=== PATIENT | male | born 2005 | race Hispanic/Latino ===

== ENCOUNTER 2024-12-15 11:22 | Emergency (ER) | payer SELFPAY ==
[~2024-12-15] VITALS: Ht 170.2 cm; Wt 68.0 kg
[2024-12-15] MEDS ORDERED: CLIN-141 PO (11:38)
--- NOTE | 2024-12-15 11:46 | ERN ---
General Chief Complaint: Abscess Stated Complaint: PILONIDAL ABSCESS Time Seen by MD: 11:23 Time Seen by Midlevel: 11:23 Source: patient History of Present Illness Initial Comments 19-year-old male with no significant past medical history presenting to the ER with an abscess to his gluteal cleft. The abscess started several days ago and there has been an increase in pain to the area so the patient decided to report to the ER further evaluation. Denies any fever, chills, or any other symptoms at this time. Allergies: Coded Allergies: No Known Allergies (Unverified Allergy, Unknown, 12/15/24) Home Meds Active Scripts Clindamycin HCl (Clindamycin HCl) 300 Mg Capsule, 1 CAP PO TID for 10 Days, #30 CAP 0 Refills Prov:BRYAN BAER 12/15/24 Past Medical History Past Medical History: No Pertinent History Past Surgical History: None ROS Dictation CONSTITUTIONAL: Negative except for HPI HEAD/FACE: Negative except for HPI EENT: Negative except for HPI RESPIRATORY: Negative except for HPI GASTROINTESTINAL/ABDOMINAL: Negative except for HPI GENITOURINARY: Negative except for HPI MUSCULOSKELETAL: Negative except for HPI INTEGUMENTARY: Negative except for HPI NEUROLOGICAL/PSYCH: Negative except for HPI HEMATOLOGIC/LYMPHATIC: Negative except for HPI All Systems Negative, Except as noted above. 13 point review of systems assessed and all negative except for above. Physical Exam Physical Exam Dictation Vital Signs reviewed General Appearance: Alert, oriented x 3, no acute distress, well developed, nourished. Head and Face: non-traumatic. Eyes: PERRL, pink conjunctivas, eyelid no trauma, anterior chamber with arcus senilis. Ears: Pinnas intact and no signs of trauma or erythema ear canals clear and no d ischarge TM no erythema Nose: No discharge, no bleeding. Oropharynx: Mouth normal, tongue pink, pharynx clear,no erythema, tonsils no exudates, no abscesses noted, mucous membrane moist Neck: Supple, non-tender, no thyromegaly, no masses, no JVD, no bruits Breast:Deferred Chest:No tenderness, no crepitus, no paradoxical movement, no retractions Lungs:Clear, well-ventilated, symmetric, no rales, no wheezing, no rhonchi, no stridor, good breath sounds bilaterally Heart: Regular rate, regular rhythm, no murmur, no gallops Vascular: no peripheral edema, Abdomen: Soft, positive bowel sounds, nondistended, no guarding, nontender, no rebound, no masses no hepatomegaly, no splenomegaly, no Grimaldo's sign, no hernias. Rectal: Deferred Genital: Deferred Neurological: Normal speech, motor function intact, sensory function intact Musculoskeletal: Neck nontender, full range of motion, back nontender, full range of motion, Extremities: nontender, full range of motion Skin: Pilonidal cyst her mom mild erythema, no induration noted Lymphatic: Deferred MDM MDM: Differential diagnosis: Abscess, cellulitis, laceration There are no social concerns with this patient. Prescription drug management Prescriptions will include: Clindamycin Medical management and examination interpretation discussions were had by me with other qualified healthcare professionals as indicated for the patient's care. ED Course Orders Procedure Category Date Status Time Ceftriaxone 1g Vial PHA 12/15/24 In Process (Rocephine 1g Inj) 12:00 Current Medications Medications (Trade) Dose Ordered Sig/Puneet Route PRN Reason Start Time Stop Time Status Last Admin Dose Admin Ceftriaxone Sodium (ROCEphine 1G INJ) 1 gm ONCE ONCE IM 12/15/24 12:00 12/15/24 12:01 Vital Signs Date Time Temp Pulse Resp B/P (MAP) Pulse Ox O2 Delivery O2 Flow Rate FiO2 12/15/24 11:23 97.9 102 18 135/77 97 Room Air 0 DX & DISP Disposition: Discharge Departure Impression: Primary Impression: Pilonidal cyst Condition: Stable Scripts Clindamycin HCl (Clindamycin HCl) 300 Mg Capsule 1 CAP PO TID for 10 Days, #30 CAP 0 Refills Prov: BRYAN BAER 12/15/24 Additional Instructions: Based on your physical examination it appears your developing a pilonidal cyst. You were given antibiotics in the emergency department. I have given you a prescription for clindamycin. If your symptoms do not improve over the next 3-4 days please return to the ER for further evaluation. You may need an incision and drainage at that time. Referrals: SELF,REFERRAL (PCP) Time of Disposition: 11:38 I have reviewed the case, and I agree with, Diagnosis and Plan I performed the substantive portion of the visit. I have reviewed and personally made and approve the management plan that is documented in the note by myself or the CH[facility]. I acknowledge for responsibility for the patient's management plan. BRYAN BAER Dec 15, 2024 11:46
[2024-12-15 11:59] VITALS: BP 131/73; PULSE 95; RESP 18; TEMP 97.9; O2SAT 98
== END 2024-12-15 12:07 | disposition home or self-care (01) ==
LOC: EDH 11:22
DX: L05.01 Pilonidal cyst with abscess (principal); Z79.899 Other long term (current) drug therapy
CPT/HCPCS: 99283; 96372; J0696